=== PATIENT | female | born 1950 | race Caucasian/White ===

== ENCOUNTER 2016-10-18 05:08 | Observation (INO) | payer OTHER, MEDICARE ==
[2016-10-18] MEDS ORDERED: ONDANSETRON 4 MG/2 ML VIAL ONE (05:16)
[2016-10-18] MEDS ORDERED: NS 1,000 ML IV ONE ×2 (05:23→06:39)
[2016-10-18] MEDS ORDERED: ONDANSETRON 4 MG/2 ML VIAL IVP ONE (05:23)
--- NOTE | 2016-10-18 05:29 | EDPHY ---
H & P HPI/ROS: HPI CHIEF COMPLAINT: Severe right knee pain, syncope versus seizure HISTORY OF PRESENT ILLNESS: this patient very pleasant 66-year-old female, significant past medical history for migraine headaches, venous malformation of the brain, who presents emergency room at 5:15 a.m. in the morning after the patient developed onset of right medial knee pain in a focal area sharp stabbing pain that started all of a sudden around 11:00 p.m. last night. She did take Percocet 5/325 this did relieve the pain some she was able to sleep. She woke up to go to the bathroom use the bathroom she did get to the bathroom however was found on the ground by her . She could not get up off the ground. She complained of nausea however no chest pain or shortness of breath. Her describes a brief period of her being somewhat unresponsive with clenching of the jaw and rolling of the eyes while she was on the ground. She appeared confused after she woke up there was no generalized tonic-clonic seizure witnessed no bowel or bladder incontinence. thinks she either had a seizure versus passed out on the floor. She tells me upon arrival to the emergency room that she has severe medial aspect right knee pain without trauma. She told me at 1 point that she did have pain that radiated from her knee back to the right lateral hip all the way down to the right heel however now it is focally located to the right medial knee. She denies chest pain, recent illness, fever, headache, neck pain, abdominal pain, diarrhea denies recent illness. Her main complaint at this time is right knee pain. She tells me that he gets worse when she goes to stand on it her ambulate. She denies foot pain, cool extremity, severe pain in her foot or calf. No history DVT. Past Medical History: Migraine headaches, microscopic colitis, pancreatitis Past Surgical History: Meniscal surgery, hernia repair Social History: denies use of alcohol, drugs or tobacco products, retired beauty school instructor. Family History: noncontributory ROS REVIEW OF SYSTEMS: A comprehensive 10 point review of systems is otherwise negative aside from elements mentioned in the history of present illness. Exam Constitutional appears nontoxic triage nursing summary reviewed, vital signs reviewed, awake/alert. Eyes normal conjunctivae and sclera, EOMI, PERRLA. HENT normal inspection, atraumatic, moist mucus membranes, no epistaxis, neck supple/ no meningismus, no raccoon eyes. Respiratory clear to auscultation bilaterally, normal breath sounds, no respiratory distress, no wheezing. Cardiovascular rate normal, regular rhythm, no murmur, no edema, distal pulses normal. Gastrointestinal soft, non-tender, no rebound, no guarding, normal bowel sounds, no distension, no pulsatile mass. Genitourinary no CVA tenderness. Musculoskeletal right leg: good distal pulses of the foot, good cap refill, warm extremity, mild tenderness palpation in the medial joint line of the right knee, no significant swelling, no lesions, full range of motion, no back pain, no midline vertebral tenderness, full range of motion, no calf swelling, no tenderness of extremities, no meningismus, good pulses, neurovascularly intact. Skin pink, warm, & dry, no rash, skin atraumatic. Neurologic awake, alert and oriented x 3, AAOx3, moves all 4 extremities equally, motor intact, sensory intact, CN II-XII intact, normal cerebellar, normal vision, normal speech. Psychiatric normal mood/affect. Heme/Lymph/Immune no lymphadenopathy. Differential Diagnosis: includes but is not limited to in a particular order, with static hypotension leading to syncope, vasovagal syncope, micturition syncope, dehydration, electrolyte abnormality, Percocet leading to nausea and syncope, sciatica, right knee arthralgia, DVT, PE, acute [place] Medical Decision Making: this patient had an IV established obtain blood work she will have an EKG, chest x-ray, right knee x-ray, due to syncope and nausea she will have cardiac marker, and a CT of the head without contrast. She will be given IV fluids to hydrate her and IV Zofran for nausea. Re-evaluation: ED x-ray chest one view; this is negative for acute cardiopulmonary disease. An appreciate acute pneumonia. Image interpreted by myself. ED x-ray right knee: negative for acute traumatic injuries specifically I do not appreciate a fracture malalignment. Image interpreted by myself. EKG interpretation by me on record in [employer] system. Impression Time of EKG 5:51 a.m., this is sinus rhythm rate of 76, para 204, QTC interval 440. mcg per 2 noted aVL, V1, V2 Q-waves noted in V1, V2, V3. When I compared this EKG to her EKG dated 04/07/2011 this very similar in morphology it is noted there are Q-waves in V1 V2 V3 when compared to old EKG same as this EKG. Micro amplitude is similar. ED x-ray right knee three view: negative for acute fracture malalignment. Arthritic changes noted. Osteopenia noted. Image interpreted by myself ED x-ray right hip: negative for acute fracture dislocation. Image interpreted by myself. Arthritic changes noted. Source: Patient, EMS - Personal History Tetanus Vaccine Date: w/in last 4 years Constitutional: Initial Vital Signs Temperature (C) 36.5 C 10/18/16 05:29 Heart Rate 80 10/18/16 05:29 Respiratory Rate 22 H 10/18/16 05:29 Blood Pressure 113/73 10/18/16 05:29 O2 Sat (%) 100 10/18/16 05:29 O2 Delivery Mode Room Air Allergies/Adverse Reactions: No Known Allergies Allergy (Verified 10/18/16 05:42) Home Medications: Medication Instructions Recorded PARoxetine HCL [Paxil] 10 mg PO 10/18/16 Medical Decision Making - Data Points Laboratory Results: Laboratory Results 10/18/16 05:30 10/18/16 05:30 WBC 8.13 10^3/uL (3.80-9.50) RBC 4.26 10^6/uL (4.18-5.33) Hgb 13.3 g/dL (12.6-16.3) Hct 38.0 % (38.0-47.0) MCV 89.2 fL (81.5-99.8) MCH 31.2 pg (27.9-34.1) MCHC 35.0 g/dL (32.4-36.7) RDW 12.8 % (11.5-15.2) Plt Count 250 10^3/uL (150-400) MPV 8.7 fL (8.7-11.7) Neut % (Auto) 58.2 % (39.3-74.2) Lymph % (Auto) 34.1 % (15.0-45.0) [place] % (Auto) 6.0 % (4.5-13.0) Eos % (Auto) 0.9 % (0.6-7.6) Baso % (Auto) 0.6 % (0.3-1.7) Nucleat RBC Rel Count 0.0 % (0.0-0.2) Absolute Neuts (auto) 4.73 10^3/uL (1.70-6.50) Absolute Lymphs (auto) 2.77 10^3/uL (1.00-3.00) Absolute Monos (auto) 0.49 10^3/uL (0.30-0.80) Absolute Eos (auto) 0.07 10^3/uL (0.03-0.40) Absolute Basos (auto) 0.05 10^3/uL (0.02-0.10) Absolute Nucleated RBC 0.00 10^3/uL (0-0.01) Immature Gran % 0.2 % (0.0-1.1) Immature Gran # 0.02 10^3/uL (0.00-0.10) PT 12.1 SEC (12.0-15.0) INR 0.91 (0.83-1.16) APTT 22.6 L SEC (23.0-38.0) D-Dimer < 0.27 ug/mLFEU (0.00-0.50) Sodium Pending Potassium Pending Chloride Pending Carbon Dioxide Pending Anion Gap Pending BUN Pending Creatinine Pending Estimated GFR Pending Glucose Pending Calcium Pending Magnesium Pending Total Bilirubin Pending Conjugated Bilirubin Pending Unconjugated Bilirubin Pending AST Pending ALT Pending Alkaline Phosphatase Pending Creatine Kinase Pending CK-MB (CK-2) Fraction Pending Troponin I Pending NT-Pro-B Natriuret Pep Pending Total Protein Pending Albumin Pending Lipase Pending Medications Given: Discontinued Medications Sodium Chloride (Ns) 1,000 mls @ 0 mls/hr IV ONCE ONE PRN Reason: As Directed Stop: 10/18/16 05:24 Last Admin: 10/18/16 05:28 Dose: 1,000 mls Ondansetron HCl (Zofran) 4 mg IVP EDNOW ONE Stop: 10/18/16 05:24 Last Admin: 10/18/16 05:29 Dose: 4 mg Departure - Departure Disposition: Home, Routine, Self-Care Clinical Impression: Fall Qualifiers: Encounter type: initial encounter Qualifier Code: (W19.[id number]) Unspecified fall, initial encounter Condition: Good Instructions: Fall Prevention for Older Adults (ED)
[2016-10-18 05:38] LABS: % IMMATURE GRANULYOCYTES 0.2 % (0.0-1.1); ABSOLUTE IMMATURE GRANULOCYTES 0.02 10^3/uL (0.00-0.10); ADD DIFF? NO; ADD MORPH? NO; ADD SCAN? NO; ATYPICAL LYMPHOCYTE FLAG 10 (0-99); FRAGMENT RBC FLAG 0 (0-99); HEMOGLOBIN 13.3 g/dL (12.6-16.3); LEFT SHIFT FLG 0 (0-99); LIPEMIA HEMOLYSIS FLAG 90 (0-99); MEAN CELL HEMOGLOBIN 31.2 pg (27.9-34.1); MEAN CELL VOLUME 89.2 fL (81.5-99.8); MEAN PLATELET VOLUME 8.7 fL (8.7-11.7); PLATELET CLUMPS FLAG 0 (0-99); PLATELET COUNT 250 10^3/uL (150-400); RED BLOOD CELL COUNT 4.26 10^6/uL (4.18-5.33); RED CELL DISTRIBUTION WIDTH 12.8 % (11.5-15.2)
[2016-10-18 05:48] LABS: INR 0.91 (0.83-1.16); PROTIME(PATIENT) 12.1 SEC (12.0-15.0)
[2016-10-18 05:49] LABS: APTT 22.6 SEC (23.0-38.0)
[2016-10-18 05:53] LABS: ALANINE AMINOTRANSFERASE 36 IU/L (9-52); ALBUMIN 3.6 g/dL (3.5-5.0); ALKALINE PHOSPHATASE 51 IU/L (38-126); ANION GAP 10 mEq/L (8-16); ASPARTATE AMINOTRANSFERASE 20 IU/L (14-46); BILIRUBIN,TOTAL 0.4 mg/dL (0.1-1.4); BILIRUBIN-CONJUGATED 0.2 mg/dL (0.0-0.5); BILIRUBIN-UNCONJUGATED 0.2 mg/dL (0.0-1.1); CALCIUM 8.9 mg/dL (8.5-10.4); CARBON DIOXIDE 24 mEq/l (22-31); CHLORIDE 108 mEq/L (97-110); CREATININE 0.8 mg/dL (0.6-1.0); GLOMERULAR FILTRATION RATE > 60; GLUCOSE 107 mg/dL (70-100); MAGNESIUM 1.9 mg/dL (1.6-2.3); POTASSIUM 3.2 mEq/L (3.5-5.2); SODIUM 142 mEq/L (134-144); TOTAL PROTEIN 6.1 g/dL (6.3-8.2)
--- NOTE | 2016-10-18 05:54 | CPEKG ---
Heart Rate: 76 RR Interval: 789 P-R Interval: 204 QRSD Interval: 86 QT Interval: 440 QTC Interval: 495 P [place]: 9 QRS [place]: -20 T Wave [place]: 56 EKG Severity - ABNORMAL ECG - EKG Impression: SINUS RHYTHM EKG Impression: BORDERLINE LEFT AXIS DEVIATION EKG Impression: PROBABLE ANTEROSEPTAL INFARCT, AGE INDETERM EKG Impression: BORDERLINE PROLONGED QT INTERVAL Electronically Signed By: Ana Luisa Ingram 18-Oct-2016 23:12:35
[2016-10-18 06:05] LABS: CREATINE KINASE-MB FRACTION 1.18 ng/mL (0-3.19); TROPONIN I < 0.012 ng/mL (0-0.034)
[2016-10-18] MEDS ORDERED: PROMETHAZINE HCL 25 MG/ML VIAL IVP ONE (06:39)
[2016-10-18] MEDS ORDERED: fentaNYL 100 MCG/2 ML INJ IVP ONE (06:39)
--- NOTE | 2016-10-18 07:07 | CT ---
Unenhanced CT Scan of the Brain Clinical History: 66-year-old female who had a syncopal event versus seizure, and was found in her bathroom by her earlier this morning; the patient now has some nausea. Rule out acute intracranial abnormality. Technique: Standard unenhanced axial CT images were acquired from the skull base to the skull vertex, reformatted at 5.00 and 1.50 mm increments, and reviewed in bone, brain, and subdural windows. DFOV: 25.0 cm. Parasagittal and paracoronal reconstructed images are reviewed on the workstation. Dose reduction protocol was used. Comparison Study: MR imaging of the brain, dated September 23, 2016. Findings: On axial series 3, images 15-18, and on coronal series 5, images 52- 53, there is some very subtle curvilinear increased attenuation in the inferomedial right cerebellum corresponding to the site of the previously- diagnosed small cavernous malformation. This could represent some subtle petechial hemorrhage or some slow flow associated with the cavernous malformation. As clinically directed, short term repeat CT imaging or repeat MR evaluation may be of benefit. The ventricles and basilar cisterns are normal in size, and symmetrical in configuration. There is no midline shift or other evidence of mass effect. There is no localized infarction. There is no evidence of a skull fracture. There is a punctate hyperdensity in the left basal ganglia probably representing a tiny calcification (seen on axial series 3, images 48-49). There is a tiny mucous retention cyst in the inferior left maxillary sinus. The other paranasal sinuses, as well as the mastoids, are otherwise aerated. There is a moderate degree of leftward nasal septal deviation. The craniocervical junction , calcified pineal gland, and the orbits are unremarkable. There is mild stable pituitary hyperplasia, as was also commented upon during the recent MR exam. I provided a preliminary interpretation to Dr. Aguila Fraser at 6:05 a.m. on October 18, 2016. My final interpretation is concordant with my initial impression. Impression: Subtle petechial hemorrhage versus slow flow associated with a previously-documented tiny cavernous malformation in the right inferomedial cerebellum. As clinically directed, short term repeat CT imaging or MR imaging could be considered. There is no change in the appearance of the brain otherwise , compared to the prior MRI of September 23, 2016. POS99 MTDD
[2016-10-18] MEDS ORDERED: ONDANSETRON 4 MG/2 ML VIAL IVP PRN (07:22)
[2016-10-18] MEDS ORDERED: ACETAMINOPHEN 325 MG TAB PO PRN (07:22)
[2016-10-18] MEDS ORDERED: HYDROCODONE/APAP 5/325 TAB PO PRN (07:22)
[2016-10-18] MEDS ORDERED: ONDANSETRON DISINTEGRATING 4 MG TAB PO PRN (07:22)
[2016-10-18] MEDS ORDERED: PROTOCOL POTASSIUM 1 DOSE MISC PRN (07:26)
[2016-10-18] MEDS ORDERED: NS 1,000 ML IV SCH (07:30)
--- NOTE | 2016-10-18 07:35 | PDGENHP ---
History and Physical - Chief Complaint syncope - History of Present Illness Pt is 66/F with history of a cavernous sinus malformation, microscopic colitis who presents to the ED after a syncopal episode and with complaint of R knee pain. Pt states at around 9 pm last night she was reading on her couch, with her legs crossed below her, when she suddenly felt dull throbbing achy-type pain in her R medial/inferior knee. At this time, pain was mild, she was able to walk on it and went to bed. By 11pm, pain had become significantly worse, still a throbbing type pain, now with radiation proximal and distal to her knee joint, medially. She tried 1 tab of percocet, with some relief of her pain and she was able to go to sleep. At around 4 am, she awoke to use the bathroom, was able to walk from her bedroom to the bathroom, but still had significant pain. While on the toilet, pt describes becoming overwhelmed with sudden nausea and started vomiting (nb/nb ). She called out to her , who when he came into the bathroom, noticed that she appeared to have lost consciousness for about 10 seconds, associated with jaw clenching, but no other movements, no bowel/bladder incontinence. When she regained consciousness, she appears slightly confused for about 20-30 seconds, but then quickly regained full consciousness. Her son and then carried her to her room, as she was unable to walk due to the knee pain, and called EMS. Pt denies any recent major physical exertion, although she does do yoga daily. SHe also denies any recent fevers, chills, cough, congestion, cp, palpitations, abd pain. She does report that for the past 6 months she has been getting a daily severe, frontal morning headache. She was referred to a neurologist for outpt evaluation of this and her appointment is scheduled for 10/22. She had an MRI brain performed to w/u her headache, which only showed her chronic malformation without acute change. On arrival to the Ed, pt was afebrile, hemodynamically stable and saturating well on room air. Labs revealed normal CBC, mild hypokalemia, negative troponin. X-ray of the knee was unremarkable. CT head was also obtained and showed unchanged cavernous sinus malformation, but did show evidence of possible petechial hemorrhage. Neurosurgery was contacted by the ED and also reviewed the imaging. History Information - Allergies/Home Medication List Allergies/Adverse Reactions: No Known Allergies Allergy (Verified 10/18/16 05:42) Home Medications: PARoxetine HCL [Paxil] 10 mg PO 10/18/16 [Last Taken 10/18/16 10] I have personally reviewed and updated: family history, medical history, social history, surgical history - Past Medical History Additional medical history: microscopic colitis. cavernous sinus malformation - Surgical History Additional surgical history: L meniscus repair. cholecystectomy. tonsillectomy. carpal tunnel repair - Family History Additional family history: M: breast ca. F: stomach ca - Social History Smoking Status: Never smoked Alcohol Use: None Drug Use: None Additional social history: Pt is retired high school librarian; lives with her and son Review of Systems ROS: 10pt was reviewed & negative except for what was stated in HPI & below Physical Exam Temp Pulse Resp BP Pulse Ox 36.5 C 72 16 94/60 L 99 10/18/16 05:29 10/18/16 06:00 10/18/16 06:00 10/18/16 06:00 10/18/16 06:00 Constitutional: no apparent distress, appears nourished, not in pain Eyes: PERRL, anicteric sclera, EOMI Ears, Nose, Mouth, Throat: moist mucous membranes, hearing normal, ears appear normal, no oral mucosal ulcers Cardiovascular: regular rate and rhythym, no murmur, rub, or gallop, pulses symmetric bilaterally, No JVD, No edema Peripheral Pulses: 2+: dorsalis-pedis (R), dorsalis-pedis (L) Respiratory: no respiratory distress, no rales or rhonchi, clear to auscultation Gastrointestinal: normoactive bowel sounds, soft, non-tender abdomen, no palpable masses, No guarding, No rebound, No distension Genitourinary: no bladder fullness, no bladder tenderness Skin: warm, normal color, no rashes or abrasions, no fluctuance, No mottled Musculoskeletal: full muscle strength, no muscle tenderness, normal joint ROM, no joint effusions, joint tenderness (point tenderness at the pes anserine bursa ; neg meniscal tenderness) Neurologic: AAOx3, sensation intact bilaterally, CN II-XII Intact, No weakness, No numbness, No pronator drift Psychiatric: interacting appropriately, not anxious, not encephalopathic, thought process linear Lab Data & Imaging Review 10/18/16 05:30 10/18/16 05:30 WBC 8.13 10^3/uL (3.80-9.50) 10/18/16 05:30 RBC 4.26 10^6/uL (4.18-5.33) 10/18/16 05:30 Hgb 13.3 g/dL (12.6-16.3) 10/18/16 05:30 Hct 38.0 % (38.0-47.0) 10/18/16 05:30 MCV 89.2 fL (81.5-99.8) 10/18/16 05:30 MCH 31.2 pg (27.9-34.1) 10/18/16 05:30 MCHC 35.0 g/dL (32.4-36.7) 10/18/16 05:30 RDW 12.8 % (11.5-15.2) 10/18/16 05:30 Plt Count 250 10^3/uL (150-400) 10/18/16 05:30 MPV 8.7 fL (8.7-11.7) 10/18/16 05:30 Neut % (Auto) 58.2 % (39.3-74.2) 10/18/16 05:30 Lymph % (Auto) 34.1 % (15.0-45.0) 10/18/16 05:30 [place] % (Auto) 6.0 % (4.5-13.0) 10/18/16 05:30 Eos % (Auto) 0.9 % (0.6-7.6) 10/18/16 05:30 Baso % (Auto) 0.6 % (0.3-1.7) 10/18/16 05:30 Nucleat RBC Rel Count 0.0 % (0.0-0.2) 10/18/16 05:30 Absolute Neuts (auto) 4.73 10^3/uL (1.70-6.50) 10/18/16 05:30 Absolute Lymphs (auto) 2.77 10^3/uL (1.00-3.00) 10/18/16 05:30 Absolute Monos (auto) 0.49 10^3/uL (0.30-0.80) 10/18/16 05:30 Absolute Eos (auto) 0.07 10^3/uL (0.03-0.40) 10/18/16 05:30 Absolute Basos (auto) 0.05 10^3/uL (0.02-0.10) 10/18/16 05:30 Absolute Nucleated RBC 0.00 10^3/uL (0-0.01) 10/18/16 05:30 Immature Gran % 0.2 % (0.0-1.1) 10/18/16 05:30 Immature Gran # 0.02 10^3/uL (0.00-0.10) 10/18/16 05:30 PT 12.1 SEC (12.0-15.0) 10/18/16 05:30 INR 0.91 (0.83-1.16) 10/18/16 05:30 APTT 22.6 SEC (23.0-38.0) L 10/18/16 05:30 D-Dimer < 0.27 ug/mLFEU (0.00-0.50) 10/18/16 05:30 Sodium 142 mEq/L (134-144) 10/18/16 05:30 Potassium 3.2 mEq/L (3.5-5.2) L 10/18/16 05:30 Chloride 108 mEq/L (97-110) 10/18/16 05:30 Carbon Dioxide 24 mEq/l (22-31) 10/18/16 05:30 Anion Gap 10 mEq/L (8-16) 10/18/16 05:30 BUN 30 mg/dL (7-23) H 10/18/16 05:30 Creatinine 0.8 mg/dL (0.6-1.0) 10/18/16 05:30 Estimated GFR > 60 10/18/16 05:30 Glucose 107 mg/dL (70-100) H 10/18/16 05:30 Calcium 8.9 mg/dL (8.5-10.4) 10/18/16 05:30 Magnesium 1.9 mg/dL (1.6-2.3) 10/18/16 05:30 Total Bilirubin 0.4 mg/dL (0.1-1.4) 10/18/16 05:30 Conjugated Bilirubin 0.2 mg/dL (0.0-0.5) 10/18/16 05:30 Unconjugated Bilirubin 0.2 mg/dL (0.0-1.1) 10/18/16 05:30 AST 20 IU/L (14-46) 10/18/16 05:30 ALT 36 IU/L (9-52) 10/18/16 05:30 Alkaline Phosphatase 51 IU/L (38-126) 10/18/16 05:30 Creatine Kinase 104 IU/L (0-156) 10/18/16 05:30 CK-MB (CK-2) Fraction 1.18 ng/mL (0-3.19) 10/18/16 05:30 Troponin I < 0.012 ng/mL (0-0.034) 10/18/16 05:30 NT-Pro-B Natriuret Pep 109 pg/mL (0-125) 10/18/16 05:30 Total Protein 6.1 g/dL (6.3-8.2) L 10/18/16 05:30 Albumin 3.6 g/dL (3.5-5.0) 10/18/16 05:30 Lipase 329.0 IU/L (23-300) H 10/18/16 05:30 Visualized and Interpreted Chest x-ray results: Yes Chest X-Ray results: no infiltrate, normal Visualized and Interpreted imaging results: Yes Interpretation: x-ray knee: no acute fracture. CT head: ? petechial hemorrhage vs slow flow in the area of her known cavernous vascular malformation Visualized and Interpreted EKG results: Yes EKG Interpretation: Positive for: normal sinsus rhythm (no st/t wave changes) Assessment & Plan Assessment: Pt is 66/F with a known stable cavernous sinus malformation, who presents to the ED with acute onset R knee pain and a syncopal episode. Plan: # syncope Pt and her 's description of the event sound consistent with a syncopal episode, although seizure is an unlikely possibility. Syncope was likely vasovagal and related to the intense pain she was experiencing in her knee. However, given her history of new onset AM headaches, underlying structural [employer] abnormality. Will give IVF hydration, check TTE and consider inpt neuro consult (although outpt appointment for 1/[address] - IVF hydration - repeat troponin, EKG - check TTE # acute R knee pain Given pt's description, location and point tenderness on exam, pain appears to be secondary to pes anserine bursitis, however, differential also includes meniscal/ligament injury (although no recent trauma). X-ray unremarkable. - pain control, NSAIDs, norco prn # known cavernous sinus malformation CT head shows possible petechial hemorrhage at location of patient's known malformation. Neurosurgery has been contacted, feel imaging findings are not clinically significant. Will f/u their official recommendations. # dispo: admit under observation status # full code
[2016-10-18 07:59] LABS: COLOR PALE YELLOW; LEUKOCYTE ESTERASE,URINE TRACE (NEGATIVE); NITRITE,URINE NEGATIVE (NEGATIVE)
[2016-10-18 08:19] VITALS: RESP 14
--- NOTE | 2016-10-18 08:45 | DX ---
Portable Chest October 18, 2016 0534 hours Clinical Indications: Chest pain. Comparison: Right shoulder x-rays June 04, 2016. Findings: Frontal view (only) shows clear lungs and no masses. Heart size and pulmonary vessels laure ear normal. No evidence of pleural effusion. Degenerative changes of the shoulder are again noted. Impression: No acute cardiopulmonary process.
--- NOTE | 2016-10-18 08:46 | DX ---
Right Knee, Three Views October 18, 2016 0530 hours Indication: Right knee pain. Comparisons: None relevant. Findings: Bony alignment of the knee is anatomic. There is mild bilateral joint space narrowing of th e medial and lateral compartments. There is no significant joint effusion. Impression: Mild osteoarthritic changes of the right knee.
[2016-10-18] MEDS ORDERED: POTASSIUM CL 10 MEQ TAB PO ONE (09:03)
--- NOTE | 2016-10-18 09:33 | GCON ---
[f rep st] CONSULTATION NEUROSURGERY CONSULTATION NOTE. CHIEF COMPLAINT: Syncope and right knee pain. HISTORY OF PRESENT ILLNESS: This is a 66-year-old female who is a known patient to [facility] and has a known cerebellar cavernous malformation. She has previously been seen in [facility] practice and recently had an MRI, which showed no growth or changes in this cavernous malformation . She presents today to the emergency room after she was up at 3:00 in the morning in her bathroom w hen she went to stand up from the toilet and had a syncopal episode. The patient states that when sh e was on the floor she was unable to get up. The patient states that prior to this, earlier in the e vening, she had horrible right knee pain and did take a Percocet at 11 o'clock, but she has taken thi s in the past without any issue. The patient states that over the last several months she also had s evere headaches, landing her in bed a lot of the time when they occur. Patient states that during th jovita headaches she does have an aura, but no photophobia, vision changes, nausea, or vomiting. The pa robel states that she did not have a headache last night during the syncopal episode and has not had a headache today as well. The patient denies any numbness, tingling, or weakness in her arms or legs . She denies any loss of bowel or bladder control. She denies any slurred speech, vision changes, e xcessive sleepiness, nausea, vomiting. The patient's is at the bedside. PAST MEDICAL HISTORY: 1. Cavernous malformation. 2. Right knee pain. 3. Microscopic colitis. PAST SURGICAL HISTORY: 1. Left meniscus repair. 2. Cholecystectomy. 3. Tonsillectomy. 4. Carpal tunnel repair. FAMILY HISTORY: Significant for breast cancer in her mother and father stomach cancer. REVIEW OF SYSTEMS: 10-point review of systems obtained and is otherwise negative than stated in the HPI. ALLERGIES: The patient has no known drug allergies. SOCIAL HISTORY: Patient is , with her at the bedside. Patient denies any smoking his tory. Denies any alcohol use. Denies any other illicit drug use. Patient is a retired schoolteacher , and lives with her and her son. MEDICATIONS: Paroxetine 10 mg p.o. daily and she also took a Percocet last night at 11 p.m. PHYSICAL EXAMINATION: VITAL SIGNS: Blood pressure 196/70, heart rate 72, respiratory rate 14, O2 sa turation 98% on room air, temperature 36.7 degrees Celsius. GENERAL: The patient is a well-develope d, well-nourished female, in no acute distress. HEENT: Head is normocephalic, atraumatic. Pupils e qual, round, reactive to light and accommodation. Extraocular muscles are intact. RESPIRATORY: Nancy felipe has normal work of breathing. NECK: Nontender and full range of motion. ABDOMEN: There is no guarding. NEURO: Cranial nerves 2-12 are grossly intact. Tongue protrusion is midline. Palate ri ses symmetrically. Accessory muscles are 5/5. Sensation is intact to light touch over the neural di stribution of her body. MOTOR: Bilateral upper extremities are 5/5 and equal in strength in all mus aníbal groups, including deltoids, biceps, triceps, interossei, chief data officer, wrist extensors, and wrist flexors . Bilateral lower extremities are 5/5 and equal in strength in hamstrings, quadriceps, iliopsoas, do rsiflexion, plantar flexion, EHL. Sensation is intact to light touch in the bilateral upper and lowe r extremities. Deep tendon reflexes are 2+ bilaterally in the patellar, biceps, and brachioradialis. Other reflexes are negative for clonus and Aaron. EXTREMITIES: Well perfused with no cyanosis or edema noted. MUSCULOSKELETAL: Patient does have tenderness to palpation over the medial aspect o f the right knee. LABORATORY DATA: White blood cell count 8.13, red blood cell count 4.26, hemoglobin 13.3, platelets 250, INR 0.91, APTT 22.6, D-dimer less than 0.27, lactic acid 0.7. Chemistry: Sodium 142, potassiu m 3.2, chloride 108, anion gap 10, BUN 30, creatinine 0.8, GFR greater than 60, AST 20, ALT 36, alkal ine phosphatase 51, troponin less than 0.012, total protein 6.1, albumin 3.6, lipase 329.0, glucose 1 07. REPORTS: A CT of the head was obtained and shows subtle petechial hemorrhage versus slow flow associ ated with previously documented tiny cavernous malformation in the right inferomedial cerebellum. As clinically directed, short term CT imaging or repeat MRI imaging could be considered. There is no c hange in appearance of the brain otherwise, compared to the prior MRI imaging of September 23, 2016. ASSESSMENT AND PLAN: This is a 66-year-old female who had a syncopal episode at 3:00 in the morning and comes into the emergency room also with right knee pain. She has a prior history with [facility] and has a known cerebellar cavernous malformation on the right side. Repeat im aging of this today shows no new changes and no active bleed. An MRI report was reviewed also from D 2015 and there have been no changes since that report. At this time, there is no neurosu rgical intervention required for this patient and she is to follow up as an outpatient as scheduled w chevy Astudillo at [facility] for further opinions on her cavernous malformation. We do not believe that her headaches or syncopal episode were due to this cavernous malformation. We recommend further followup with Neurology, as well as the medicine service, as to reasons for this syncopal episode and recurrent headaches. If any other changes in neuromotor exam, please contact [facility] neurosurgical team. The patient was seen in the emergency room by Neurosurgical Services at 7 a.m. /[id number]/MODL
--- NOTE | 2016-10-18 10:46 | ECHO ---
[id number] + + [id number] : : [place] [id number] : : [phone] + + Adult Echocardiographic Report + ---------+ :Name: MACY MONTOYA MStudy Date: 10/18/2016 08:37 AM : : Hospital Admission Number: [id number] Luz casanova: 346: :: 1950 Gender: Female Height: 63 i n : :Age: 66 yrs Race: WH Weight: 110 lb : :Reason For Study: syncope : : BSA: 1.5 met ers2 : + ---------+ MMode/2D Measurements & Calculations IVSd: 0.64 cm LVIDd: 4.0 cm FS: 38.2 % Ao root diam: LVPWd: 0.76 cm LVIDs: 2.5 cm EDV(Teich): 3.1 cm 69.7 ml LA dimension: ESV(Teich): 3.2 cm 21.6 ml EF(Teich): 69.0 % LVLd ap4: 6.9 cm SV(MOD-sp4): EDV(MOD-sp4): 24.0 ml 36.0 ml LVLs ap4: 5.2 cm ESV(MOD-sp4): 12.0 ml EF(MOD-sp4): 66.7 % Normal Measurement Values: + + :LVIDd (3.5-5.7cm) IVSd (0.6-1.1cm) LVPWd (0.6-1.1cm) Aortic Root (2.0-3.7cm)Left Atrium (1.5-4.0cm): :LV Vol(d) (76-115ml) LV Vol(s) (29-48ml) Ejec Fraction (50-65%)PV Luis (0.6- 1.2m/s) TV Luis (0.4-1.0m/s) : :MV E Luis (0.8-1.0m/s)MV A Luis (0.3-1.0m/s)LVOT Luis (0.7-1.2m/s) Asc Ao Luis ( 0.9-1.8m/s) : + + Doppler Measurements & Calculations MV E max luis: 62.2 cm/sec Ao V2 max: 123.5 cm/sec TR max luis: 236.2 cm/sec MV A max luis: 56.3 cm/sec Ao max P.1 mmHg TR max P.3 mmHg MV E/A: 1.1 RAP systole: 5.0 mmHg RVSP(TR): 27.3 mmHg Left Ventricle The left ventricle is normal in size. There is normal left ventricular wall thickness. Left ventricular systolic function is normal. Ejection Fraction = 65-70%. No regional wall motion abnormalities noted. Right Ventricle The right ventricle is normal in size and function. Atria The left atrial size is normal. Right atrial size is normal. Mitral Valve The mitral valve is normal in structure and function. There is no evidence of mitral valve prolapse. There is no mitral valve stenosis. There is mild mitral regurgitation. Tricuspid Valve Normal tricuspid valve. There is mild tricuspid regurgitation. Right ventricular systolic pressure is normal. Aortic Valve The aortic valve is trileaflet. The aortic valve opens well. There is no aortic stenosis. There is no aortic insufficiency. Pulmonic Valve The pulmonic valve is normal in structure and function. There is no pulmonic valvular regurgitation. Great Vessels The aortic root is normal size. Pericardium/Pleural There is no pericardial effusion. Conclusion A complete two-dimensional transthoracic echocardiogram was performed (2D, M-mode, Doppler and color flow Doppler). Left ventricular systolic function is normal. Ejection Fraction = 65-70%. There is mild mitral regurgitation. There is mild tricuspid regurgitation. Right ventricular systolic pressure is normal. No prior echo Final Reading Physician: Dr Carol Reyna electronically signed on 10/18/2016 10:44 AM Ordering Physician: Milena Morrissey Performed By: Kellie Dobson RDCS
[2016-10-18 11:42] VITALS: BP 90/52; PULSE 69; TEMP 98.2; O2SAT 96
[2016-10-18] MEDS ORDERED: BUDESONIDE 3 MG EC CAP PO SCH (13:00)
[2016-10-18] MEDS ORDERED: SERTRALINE HCL 100 MG TAB PO SCH (13:00)
--- NOTE | 2016-10-18 14:37 | HOSPPROG ---
Hospitalist Progress Note Assessment/Plan: Patient is a 66-year-old female who has a history of cavernous sinus mouth formation, microscopic colitis who presented to the ER with a syncopal event. She also has complaint of right knee pain #. syncopal event suspect this is secondary to vasovagal she was having significant pain with her knee while walking to the bathroom troponin is negative echo shows normal LV function/ef of 65-70% satellite project site monitor shows sinus rhythm #. acute right knee pain xray shows nothing acute suspect she has underlying arthritis #. Hypotension reviewed w her to stay well hydrated and to move from lying -standing slowly she has a hx of this #. chronic headaches further f/u with Dr Guzman has an appt on Saturday #. known cavernous sinus malformation neurosurgery evaluated her CT of her head/ noted that this was stable #. Plan: dc later today Subjective: Laura has no complaints/ feeling overall well. Objective: Vital Signs Temp Pulse Resp BP Pulse Ox 36.8 C 69 14 90/52 L 96 10/18/16 11:41 10/18/16 11:41 10/18/16 11:41 10/18/16 11:41 10/18/16 11:41 10/17/16 10/18/16 10/19/16 05:59 05:59 05:59 Intake Total 2400 Balance 2400 PT 12.1 SEC (12.0-15.0) 10/18/16 05:30 INR 0.91 (0.83-1.16) 10/18/16 05:30 - Physical Exam Constitutional: no apparent distress, appears nourished, not in pain Eyes: PERRL Ears, Nose, Mouth, Throat: hearing normal Cardiovascular: regular rate and rhythym Respiratory: no respiratory distress Gastrointestinal: normoactive bowel sounds Skin: warm Musculoskeletal: no muscle tenderness Neurologic: AAOx3 Psychiatric: interacting appropriately, not anxious ICD10 Worksheet Patient Problems: Problems Problem Status Diagnosed Fall Acute
--- NOTE | 2016-10-18 16:44 | GDS ---
[f rep st] DISCHARGE SUMMARY DISCHARGE DIAGNOSES: 1. Syncopal event. 2. Acute right knee pain. 3. Hypotension. 4. Chronic headaches. 5. Known cavernous sinus malformation. CONSULTATIONS DURING HER STAY: Nikki Delarosa, YARI with neurosurgical services. BRIEF HISTORY: The patient is a very nice 66-year-old woman with a history of cavernous sinus malformation, microscopic colitis, who presented to the emergency room after a syncopal episode with complaints of right knee pain. Last night, around 9 p.m., she was reading on her couch with her legs crossed below her, when suddenly she felt dull, throbbing, achy type pain in the right knee area. She was able to walk, and went to bed. By 11 p.m., the pain became worse, so she took a pain pill and fell asleep. Then, around 4 a.m., she awoke to go to the bathroom, and had significant pain and had a bout of nausea and started vomiting, and at that time, she passed out. Her brought her to the emergency room for further evaluation. HOSPITAL COURSE PER PROBLEM: 1. Syncopal event. In talking with the patient, it sounds like it was a vasovagal event. She was in pain and had associated nausea and vomiting. Troponins were checked x2, which were negative. Echocardiogram showed normal LV function with an EF of 65% to 70%. I reviewed her strips on the parts counter associate. She has been in sinus rhythm. 2. Acute right knee pain. The x-ray shows nothing acute. Her exam overall is benign. Suspect she has underlying arthritis. 3. Hypotension. She has a history of this and has been dehydrated. Recommended that she stay well hydrated and move slowly from lying to sitting to standing up. 4. Chronic headaches. Further followup with Dr. Guzman. She has an appointment with him on Saturday. 5. Known cavernous sinus formation. She has been evaluated by neurosurgical team. She will further follow up with them in the outpatient setting. PENDING LABS AND TESTS: Urine culture is pending. CONDITION AT DISCHARGE: Stable. Blood pressure is 90/52, heart rate 69, respiratory rate is 14, O2 sats on room air 96%, temperature is 36.8 Celsius. MEDICATIONS AT DISCHARGE: Please see the EMR. DISCHARGE INSTRUCTIONS: 1. Recommend she stay well hydrated. 2. To get a repeat UA to make sure she does not have any red blood cells. 3. If she has fever, chills, chest pain, or any further syncopal events, to return to the emergency room. 4. If knee pain persists, see an orthopedic physician. /[id number]/MODL MTDD
[2016-10-19] MEDS ORDERED: Herbals/Supplements -Info Only PO SCH (09:00)
== END 2016-10-18 16:26 | disposition home or self-care (01) ==
LOC: EDUNIT# → F3N 08:18
PROVIDERS: ADMIT Internal Medicine; ATTEND Student in an Organized Health Care Education/Training Program
DX: R55 Syncope and collapse (principal); M25.561 Pain in right knee; I95.9 Hypotension, unspecified; R51 Headache; Q28.3 Other malformations of cerebral vessels; Z91.81 History of falling; Z80.3 Family history of malignant neoplasm of breast
CPT/HCPCS: 70450; 71010; 73562; 93005; 93306; 96361; 96374; 96375; 97161; 99285; G0378; G8978; G8979; G8980; J2405; J2550; J3010

== ENCOUNTER → 2017-03-12 | Outpatient (CLI) | payer OTHER, MEDICARE | LOC: FIMAGING 09:47 | PROVIDERS: ATTEND Internal Medicine | DX: Z13.820 Encounter for screening for osteoporosis (principal); Z78.0 Asymptomatic menopausal state ==

== ENCOUNTER → 2017-10-16 | Outpatient (CLI) | payer OTHER, MEDICARE | LOC: FIMAGING 11:31 | PROVIDERS: ATTEND Internal Medicine | DX: Z12.31 Encounter for screening mammogram for malignant neoplasm of breast (principal); Z80.3 Family history of malignant neoplasm of breast ==

== ENCOUNTER 2018-02-17 10:37 | Emergency (ER) | payer OTHER, MEDICARE ==
--- NOTE | 2018-02-17 10:55 | CPEKG ---
Heart Rate: 63 RR Interval: 952 P-R Interval: 188 QRSD Interval: 82 QT Interval: 412 QTC Interval: 422 P Josephine: 46 QRS Josephine: -43 T Wave Josephine: 52 EKG Severity - BORDERLINE ECG - EKG Impression: SINUS RHYTHM EKG Impression: LEFT AXIS DEVIATION Electronically Signed By: Marshall Marshall 17-Feb-2018 11:36:00
[2018-02-17 11:11] LABS: PLATELET COUNT 264 10^3/uL (150-400)
--- NOTE | 2018-02-17 11:35 | EDPHY ---
H & P Stated Complaint: Chest pain on Saturday, now resolved. Extreme fatigue since. Time Seen by Provider: 02/17/18 11:09 HPI/ROS: CHIEF COMPLAINT: Chest pain on Saturday, fatigue sense HISTORY OF PRESENT ILLNESS: The patient presents to the ED after she experienced an episode of chest pain on Saturday. The patient reports that it began in the afternoon. It lasted approximately 10 min. It was intermittent and then resolved. Since that time the patient has can planed of generalized fatigue. She has no recurrent chest pain or shortness of breath. The patient does report a history of exertional dyspnea week ago which resulted in nausea. The patient denies any risk factors for coronary artery disease. The patient denies any asymmetric calf pain or swelling. The patient takes no regular medications. The patient has a surgical history for cholecystectomy and hernia repair. REVIEW OF SYSTEMS: A comprehensive 10 point review of systems is otherwise negative aside from elements mentioned in the history of present illness. Source: Patient Exam Limitations: No limitations - Personal History Current Tetanus Diphtheria and Acellular Pertussis (TDAP): Unsure Tetanus Vaccine Date: w/in last 4 years - Medical/Surgical History Hx Asthma: No Hx Chronic Respiratory Disease: No Hx Diabetes: No Hx Cardiac Disease: No Hx Renal Disease: No Hx Cirrhosis: No Hx Alcoholism: No Hx HIV/AIDS: No Hx Splenectomy or Spleen Trauma: No Other PMH: Past medical history: Migraine headache, colitis. Past surgical history: Cholecystectomy, hernia repair - Social History Smoking Status: Never smoked - Physical Exam Exam: General Appearance: Alert, no distress Eyes: Pupils equal and round no pallor or injection ENT, Mouth: Mucous membranes moist Respiratory: There are no retractions, lungs are clear to auscultation Cardiovascular: Regular rate and rhythm Gastrointestinal: Abdomen is soft and nontender, no masses, bowel sounds normal Neurological: A&O, normal motor function, normal sensory exam, normal cranial nerves Skin: Warm and dry, no rashes Musculoskeletal: Neck is supple nontender Extremities: symmetrical, full range of motion Constitutional: Initial Vital Signs Temperature (C) 37 C 02/17/18 10:38 Heart Rate 78 02/17/18 10:38 Respiratory Rate 16 02/17/18 10:38 Blood Pressure 113/95 H 02/17/18 10:38 O2 Sat (%) 98 02/17/18 10:38 O2 Delivery Mode Room Air Allergies/Adverse Reactions: No Known Allergies Allergy (Verified 10/18/16 05:42) Home Medications: Medication Instructions Recorded Acetaminophen [Tylenol 325mg (*)] 650 mg PO Q4HRS PRN #0 tab 10/18/16 Herbals/Supplements -Info Only 1 ea PO DAILY 10/18/16 Sertraline HCl [Zoloft 100mg (*)] 100 mg PO DAILY 10/18/16 Medical Decision Making - Diagnostics EKG Interpretation: EKG: Complete interpretation has been separately recorded in the [employer] archive. Summary impression: Sinus rhythm, rate 63 Imaging Results: Imaging Impressions Chest X-Ray 02/17/18 11:30 Impression: Negative. ED Course/Re-evaluation: The patient presents to the ED with several days of fatigue after an episode of chest pain which occurred 2 days ago. The patient has no risk factors for coronary artery disease. The patient denies any significant medication changes. The patient was noted to have a normal EKG and negative troponin. The patient did undergo a treadmill stress test in the emergency department which was reviewed with Dr. Carol Reyna. Her treadmill stress test was unremarkable. This point time there is no objective evidence of acute coronary syndrome. The patient is felt to be low risk in the setting of her negative treadmill stress test. At this point time I would refer her back to her primary care provider for further evaluation. She is advised to return to the ED for any recurrent chest pain, difficulty breathing or other concerns. Differential Diagnosis: Differential diagnosis considered includes acute coronary syndrome, dehydration , anemia, metabolic abnormality, hypothyroidism - Data Points Laboratory Results: Laboratory Results 02/17/18 10:50 02/17/18 10:50 02/17/18 02/17/18 02/17/18 11:10 10:50 10:50 WBC RBC Hgb Hct MCV MCH MCHC RDW Plt Count MPV Neut % (Auto) Lymph % (Auto) [place] % (Auto) Eos % (Auto) Baso % (Auto) Nucleat RBC Rel Count Absolute Neuts (auto) Absolute Lymphs (auto) Absolute Monos (auto) Absolute Eos (auto) Absolute Basos (auto) Absolute Nucleated RBC Immature Gran % Immature Gran # Sodium 141 mEq/L mEq/L (135-145) Potassium 4.3 mEq/L mEq/L (3.5-5.2) Chloride 104 mEq/L mEq/L (97-110) Carbon Dioxide 26 mEq/l mEq/l (22-31) Anion Gap 11 mEq/L mEq/L (8-16) BUN 23 mg/dL mg/dL (7-23) Creatinine 0.9 mg/dL mg/dL (0.6-1.0) Estimated GFR > 60 Glucose 89 mg/dL mg/dL (70-100) Calcium 9.2 mg/dL mg/dL (8.5-10.4) Troponin I < 0.012 ng/mL ng/mL (0.000-0.034) TSH 1.810 uIU/mL uIU/mL (0.465-4.680) Urine Color PALE YELLOW Urine Appearance CLEAR Urine pH 5.0 (5.0-7.5) Ur Specific [place] 1.005 (1.002-1.030) Urine Protein NEGATIVE (NEGATIVE) Urine Ketones NEGATIVE (NEGATIVE) Urine Blood 1+ H (NEGATIVE) Urine Nitrate NEGATIVE (NEGATIVE) Urine Bilirubin NEGATIVE (NEGATIVE) Urine Urobilinogen NEGATIVE EU EU (0.2-1.0) Ur Leukocyte Esterase NEGATIVE (NEGATIVE) Urine RBC 1-3 /hpf /hpf (0-3) Urine WBC 1-3 /hpf /hpf (0-3) Ur Epithelial Cells NONE SEEN /lpf /lpf (NONE-1+) Urine Bacteria TRACE /hpf H /hpf (NONE SEEN) Urine Mucus TRACE /lpf /lpf (NONE-1+) Urine Glucose NEGATIVE (NEGATIVE) 02/17/18 10:50 WBC 5.98 10^3/uL 10^3/uL (3.80-9.50) RBC 4.61 10^6/uL 10^6/uL (4.18-5.33) Hgb 14.8 g/dL g/dL (12.6-16.3) Hct 44.2 % % (38.0-47.0) MCV 95.9 fL fL (81.5-99.8) MCH 32.1 pg pg (27.9-34.1) MCHC 33.5 g/dL g/dL (32.4-36.7) RDW 12.9 % % (11.5-15.2) Plt Count 264 10^3/uL 10^3/uL (150-400) MPV 8.9 fL fL (8.7-11.7) Neut % (Auto) 58.1 % % (39.3-74.2) Lymph % (Auto) 33.8 % % (15.0-45.0) [place] % (Auto) 6.0 % % (4.5-13.0) Eos % (Auto) 1.2 % % (0.6-7.6) Baso % (Auto) 0.7 % % (0.3-1.7) Nucleat RBC Rel Count 0.0 % % (0.0-0.2) Absolute Neuts (auto) 3.48 10^3/uL 10^3/uL (1.70-6.50) Absolute Lymphs (auto) 2.02 10^3/uL 10^3/uL (1.00-3.00) Absolute Monos (auto) 0.36 10^3/uL 10^3/uL (0.30-0.80) Absolute Eos (auto) 0.07 10^3/uL 10^3/uL (0.03-0.40) Absolute Basos (auto) 0.04 10^3/uL 10^3/uL (0.02-0.10) Absolute Nucleated RBC 0.00 10^3/uL 10^3/uL (0-0.01) Immature Gran % 0.2 % % (0.0-1.1) Immature Gran # 0.01 10^3/uL 10^3/uL (0.00-0.10) Sodium Potassium Chloride Carbon Dioxide Anion Gap BUN Creatinine Estimated GFR Glucose Calcium Troponin I TSH Urine Color Urine Appearance Urine pH Ur Specific [place] Urine Protein Urine Ketones Urine Blood Urine Nitrate Urine Bilirubin Urine Urobilinogen Ur Leukocyte Esterase Urine RBC Urine WBC Ur Epithelial Cells Urine Bacteria Urine Mucus Urine Glucose Departure - Departure Disposition: Home, Routine, Self-Care Clinical Impression: Fatigue Condition: Good Instructions: Fatigue (ED) Additional Instructions: 1. The testing in the emergency department today demonstrates no obvious abnormality. 2. Please schedule a follow-up appointment with your primary care provider. 3. Please return to the ED for any recurrent chest pain, difficulty breathing, worsening weakness or other concerns. Referrals: Maegan Carlson MD [Primary Care Provider] - As per Instructions
--- NOTE | 2018-02-17 14:15 | CPR ---
[f rep st] NONINVASIVE CARDIAC PROCEDURE REPORT INDICATION FOR PROCEDURE: Episode of chest pressure last Saturday with ongoing fatigue symptoms. PRE: After obtaining informed consent and ensuring patient's n.p.o. status for 2 hours, patient was placed on electrocardiogram. Initial EKG shows sinus rhythm, normal axis, and slow R-wave progressio n in precordial leads. Initial saturation 96%. Blood pressure 116/70. Patient denies any chest john n, shortness of breath, or symptoms suggesting ischemia. STRESS: Patient was placed on exercise treadmill, following standard Olrando protocol with the followi ng findings: 1. Patient exercised for 8 minutes. 2. 9.3 METS. 3. Patient obtained a heart rate of 153 beats per minute, which was 99% of maximum predicted heart r ate. 4. Patient had no chest pain or symptoms suggesting of ischemia throughout testing. 5. Patient did have [address] depression (nondiagnostic of ischemia) at peak exercise. 6. No arrhythmias were noted. 7. BP response at rest, 116/70. Peak 160/80. 8. SpO2 greater than 90% throughout testing. 9. Test was stopped due to maximum effort. 10. Bryant treadmill score of 8, placing her at low cardiovascular risk. RECOVERY: Patient recovered for 5 minutes, when exercise stopped, and patient standing for more than a minute, became mildly lightheaded. Symptoms did subside when she sat down. Vital signs remained stable, no significant EKG changes, heart rate returned back to baseline. Final blood pressure was 1 16/80. No arrhythmias noted during recovery. IMPRESSION: 67-year-old female reporting episode of chest pressure on Saturday, with ongoing fatigue symptoms. No other symptoms of chest pain. Negative troponin in the ER. Exercise treadmill testin g done with no EKG changes at peak exercise suggesting ischemia. No arrhythmias. Bryant treadmill sco re of 8, placing her at low cardiovascular risk. Results of study went over with Dr. Reyna, and resul ts called to Dr. Marshall of Emergency Services. /[id number]/MODL
[2018-02-17 14:34] VITALS: BP 114/72
== END 2018-02-17 14:33 | disposition home or self-care (01) ==
DX: R53.83 Other fatigue (principal)

== ENCOUNTER → 2018-09-09 | Outpatient (CLI) | payer OTHER, MEDICARE | LOC: BMCIMAGING 10:03 | PROVIDERS: ATTEND Internal Medicine Rheumatology | DX: M17.0 Bilateral primary osteoarthritis of knee (principal) ==

== ENCOUNTER → 2019-03-12 | Outpatient (CLI) | payer OTHER, MEDICARE | LOC: FIMAGING 09:54 ==